=== PATIENT | male | born 1980 | race African-American/Black ===

== ENCOUNTER → 2021-02-08 03:03 | Outpatient (CLI) | payer BC, SELFPAY ==
[2021-02-09 01:26] LABS: SARS-CoV-2 RNA PCR Positive
== END ==
PROVIDERS: PCP Family Medicine; Visit Provider Nurse Practitioner Adult Health
DX: U07.1 COVID-19 (principal)
CPT/HCPCS: C9803; U0003; U0005

== ENCOUNTER 2024-12-07 00:18 | Day surgery (SDC) | payer BC, SELFPAY ==
[2024-11-28 08:25] VITALS: BMI 41.4
--- OUTSIDE RECORDS SUMMARY | 2024-12-07 00:21 | XMS_ITS | Encounter Summary ---
Author Organization [facility] Address [address] [place] [address] Care Team Providers Care [employer] Manager Name Role Phone Malini Kamara MD Primary Care Provider Encounter Details Date Type Department Care Team (Latest Contact Info) Description 06/15/2006 Outpatient Historical [facility] Mitch Wallace MD NO ADDRESS ON FILE Other Kyphoscoliosis and Scoliosis (Primary Dx) Social History Tobacco Use Types Packs/Day Years Used Date Smoking Tobacco: Never Assessed Sex and Gender Information Value Date Recorded Sex Assigned at Not on file Legal Sex Male 5:10 AM [employer]IV[employer]NA[employer] Gender Identity Not on file Sexual Orientation Not on file documented as of this encounter Plan of Treatment Not on file documented as of this encounter Visit Diagnoses Diagnosis Other kyphoscoliosis and scoliosis- Primary documented in this encounter Care Teams [employer] Manager Relationship Specialty [place] [id number] [facility] [address] [place] [id number] PCP - General 06/15/06 documented as of this encounter
--- OUTSIDE RECORDS SUMMARY | 2024-12-07 00:21 | XMS_ITS | Data Portability ---
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 Role Phone DEREJE KERR Referring Provider [phone] Assessment Encounter Date Assessment Date Assessment LastModified by Organization Details LastModified Time 01/06/2023 01/06/2023 Assessment: Rhinitis Early REM onset Moderate RIGO, AHI = 26 Hypertension Plan: The following were reviewed and explained to the patient: primary care/referral note [facility] split night sleep study 12/15/14 sleep onset = 5.5 minutes, REM onset = 69 minutes, AHI =26, REM AHI = 64, ResMed medium AirFit P10 nasal pillows @ 8 cmH2O Educated the patient on problems and solutions associated with positive airway pressure (PAP) use. Difficulty tolerating pressure, mask leaks, intolerance of interface, nasal congestion, claustrophobic response, dry mouth, and unintentional mask removal during sleep were covered. Patient experiences nasal congestion. Patient will use nasal saline spray before starting PAP, use heated PAP humidifier, clean/air dry humidifier reservoir daily, use nasal steroid spray, use ipratropium bromide nasal spray if rhinitis/rhinorr hea is present or obtain an oronasal/oral interface. General information on sleep disordered breathing, evaluation of sleep disordered breathing, treatment with PAP therapy, and living with PAP therapy were covered. PSG is medically necessary to determine the degree of and management of sleep apnea. We discussed with the patient the impact of weight on: Sleep disordered breathing Hypertension Hyperlipidemia IGT CANDY Urge urinary incontinence Lumbar stenosis We discussed with the patient the benefit of PAP therapy on: Sleep disordered breathing Rhinitis Hypertension IGT CANDY Urge urinary incontinence Educated the patient on sleep hygiene measures. Relaxing rituals to rest easy, understanding foods with positive and negative impact on sleep, creating a peaceful sleep environment, timing of exercise, using herbal sleep aids, and practicing sleep-friendly meditation were covered. To determine how much sleep is needed, the patient will assess where he falls on the spectrum, examine what lifestyle factors such as work schedules and stress are affecting the quality and quantity of sleep. In general, adults need 7-9 hours of sleep. Educated the patient regarding foods that promote sleep. These include but are not limited to cherries, bananas, toast, oatmeal, and warm milk. Educated the patient regarding foods and drinks to avoid before bedtime. These include but are not limited to aged cheese, chocolate, spicy foods, tomato-based sauces, soy, ginseng tea and processed meat. Advocated influenza vaccination annually and pneumonia vaccination CHEO. Advocated weight loss through diet and exercise. Patient's ideal body weight according to height and gender is up to 220 lbs. Encouraged patient to adjust caloric intake to maintain/achieve ideal body weight, emphasizing on fruits, vegetables, whole grains, and fat-free or low-fat products. These include lean meats, poultry, fish, beans, eggs, and nuts and foods that are low in saturated fats, trans-fats, cholesterol, salt (sodium), and glycemic index. Stressed the importance of regular exercise up to the patient's capacity limits. In this case, we recommend 20 min daily walking, 2 days a week of resistance training. Patient to monitor BP daily and bring records to PCP for further management. Follow-up: 1 week after split night sleep study Not available 01/06/2023 17:16:47 02/19/2023 02/19/2023 Assessment: Rhinitis Early REM onset Severe OSAHS, AHI = 33 Hypertension Plan: The following were reviewed and explained to the patient: [facility] split night sleep study 12/15/14 sleep onset = 5.5 minutes, REM onset = 69 minutes, AHI = 26, RDI = 29, REM RDI = 64, ResMed medium AirFit P10 nasal pillows @ 8 cmH2O [facility] split night sleep study 02/13/23 sleep onset = 10 minutes, REM onset = 138 minutes, AHI = 33, supine AHI = 41, REM AHI = 53, ResMed medium AirFit P10 nasal pillows @ 6-7 cmH2O Educated the patient on problems and solutions associated with positive airway pressure (PAP) use. Difficulty tolerating pressure, mask leaks, intolerance of interface, nasal congestion, claustrophobic response, dry mouth, and unintentional mask removal during sleep were covered. Patient experiences nasal congestion. Patient will use nasal saline spray before starting PAP, use heated PAP humidifier, clean/air dry humidifier reservoir daily, use nasal steroid spray, use ipratropium bromide nasal spray if rhinitis/rhinorr hea is present or obtain an oronasal/oral interface. ResMed Air Sense 11 auto set unit with heated humidifier, ResMed medium AirFit P10 nasal pillows and supplies at 6-7 cmH2O ordered. Further adjustment will be based on clinical response. General information on sleep disordered breathing, evaluation of sleep disordered breathing, treatment with PAP therapy, and living with PAP therapy were covered. We discussed with the patient the impact of weight on: Sleep disordered breathing Hypertension Hyperlipidemia IGT CANDY Urge urinary incontinence Lumbar stenosis We discussed with the patient the benefit of PAP therapy on: Sleep disordered breathing Rhinitis Hypertension IGT CANDY Urge urinary incontinence Educated the patient on sleep hygiene measures. Relaxing rituals to rest easy, understanding foods with positive and negative impact on sleep, creating a peaceful sleep environment, timing of exercise, using herbal sleep aids, and practicing sleep-friendly meditation were covered. To determine how much sleep is needed, the patient will assess where he falls on the spectrum, examine what lifestyle factors such as work schedules and stress are affecting the quality and quantity of sleep. In general, adults need 7-9 hours of sleep. Educated the patient regarding foods that promote sleep. These include but are not limited to cherries, bananas, toast, oatmeal, and warm milk. Educated the patient regarding foods and drinks to avoid before bedtime. These include but are not limited to aged cheese, chocolate, spicy foods, tomato-based sauces, soy, ginseng tea and processed meat. Advocated influenza vaccination annually and pneumonia vaccination CHEO. Advocated weight loss through diet and exercise. Patient's ideal body weight according to height and gender is up to 220 lbs. Encouraged patient to adjust caloric intake to maintain/achieve ideal body weight, emphasizing on fruits, vegetables, whole grains, and fat-free or low-fat products. These include lean meats, poultry, fish, beans, eggs, and nuts and foods that are low in saturated fats, trans-fats, cholesterol, salt (sodium), and glycemic index. Stressed the importance of regular exercise up to the patient's capacity limits. In this case, we recommend 20 min daily walking, 2 days a week of resistance training. Patient to monitor BP daily and bring records to PCP for further management. Follow-up: 3 months, April 2023 Not available 02/19/2023 17:08:43 Plan of Treatment Reminders Order Date Submit Date Provider Last Modified By Organization Details Last Modified Time Details Appointments None recorded. Lab TSH, serum or plasma 2024 025 [email or web address] [facility], [address], [place], [address], 13:01:24 PSA, serum or plasma 2024 025 [email or web address] [facility], [address], [place], [address], 13:01:24 vitamin D, 25-hydroxy , total, serum 2024 025 [email or web address] [facility], [address], [place], [address], 13:01:24 hemoglobin A1C, fingerstic k [address] [facility], [address] [place] [address], [address], 15:18:57 HbA1c (hemoglobi n A1c), blood 2024 025 [facility], [address], [place], [address], 13:01:25 lipid panel, serum 2024 025 [facility], [address], [place], [address], 13:01:23 CMP, serum or plasma 2024 025 [id number] [facility], [address], [place], [address], 5 13:01:24 CK (creatine kinase), total, serum 2024 025 [id number] [facility], [address], [place], [address], 5 13:01:24 drug screen, urine 2024 025 [facility] ([facility]), [address] [place], [address], 5 08:06:12 vitamin D, 25-hydroxy , total, serum 2023 024 [email or web address], [address], [place], [address], 4 03:23:33 vitamin B12 + folate, serum or blood 2023 024 [email or web address], [address], [place], [address], 4 03:23:33 CMP, serum or plasma 2023 024 [email or web address], [address], [place], [address], 4 03:23:32 lipid panel, serum 2023 024 [email or web address], [address], [place], [address], 4 03:23:31 TSH + free T4, serum 2023 024 [email or web address], [address], [place], [address], 4 03:23:31 CBC w/ auto diff 2023 024 [email or web address], [address], [place], [address], 4 03:23:33 CK (creatine kinase), total, serum 2023 024 DEMOPOLIS [facility], [address] [facility], [place], [address], 4 03:23:32 Referral gastroente rologist referral - 44 y/o needs a colonoscop y . Please call patient to schedule an appointmen t. Thank you 2024 025 [facility], [address], [address], [place], [address], 5 19:55:17 Procedures None recorded. Surgeries None recorded. Imaging polysomnog saray, split night - No auth required per [facility] 2022 023 [facility] [place], [address] [place], [address], 3 10:18:50 Medication Orders tramadol ER 100 mg tablet,ext ended release [address] [id number], [address] [facility], [place], [address], 5 14:53:49 fluticason e propionate 50 mcg/actuat ion nasal spray,susp ension 2023 024 [facility], [facility] [place], [address], 4 13:15:22 cetirizine 10 mg tablet 2023 024 [facility], [facility] [place], [address], 4 13:15:23 solifenaci n 10 mg tablet 2023 024 [facility], [facility] [place], [address], 4 13:13:34 simvastati n 40 mg tablet 2023 024 [email or web address] [facility], [place], [address], 5 14:54:31 Patient TargetsNo targets recorded. 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 Please call patient to schedule an appointment. Thank you Referring Physician: Dereje Kerr, Family Medicine, Encounter Date: 09/27/2024 Results Created Date Observation Date Name Description Value Unit Range Abnormal Flag Note LastModifiedBy Organization Detail LastModifiedTime 12/14/19 24 12/19/2023 LIPID PANEL , STAND ONESIMO cholesterol, total 200 mg/dL <200 high Not Available [facility] [address] [address] [place], [address], 12/19/2023 03:23:30 12/14/19 24 12/19/2023 LIPID PANEL , STAND ONESIMO HDL cholesterol 44 mg/dL > or = 40 normal Not Available [facility] [address] [address] [place], [address], 12/19/2023 03:23:30 12/14/19 24 12/19/2023 LIPID PANEL , STAND ONESIMO triglyceride s 125 mg/dL <150 normal Not Available [facility] [address] [place], [address], 12/19/2023 03:23:30 12/14/19 24 12/19/2023 LIPID PANEL , STAND ONESIMO LDL-choleste rol 132 mg/dL _(deja c) high Refer ence range : <100 Last able range <100 mg/dL for prima ry preve ntion ; <70 mg/dL for patie nts with CHD or diabe tic patie nts with > or = 2 CHD risk facto rs. LDL-C is now calcu lated using the Bailey n-Hop kins calcu kalyanijimmy n, which is a valid ated novel metho d provi ding candy r accur acy than the Fried joon equat ion in the estim ation of LDL-C . Bailey davis SS et al. KIM. 2013; 310(1 9): 2061- 2068 (http ://ed ucati on.Qu estFollowap. com/f aq/FA Q164) Not Available [facility] [address] [address] [place], [address], 12/19/2023 03:23:30 12/14/19 24 12/19/2023 LIPID PANEL , STAND ONESIMO chol/HDLC ratio 4.5 (calc ) <5.0 normal Not Available [facility] [address] [address] [place], [address], 12/19/2023 03:23:30 12/14/19 24 12/19/2023 LIPID PANEL , STAND ONESIMO non HDL cholesterol 156 mg/dL _(deja c) <130 high For patie nts with diabe jac plus 1 major ASCVD risk facto r, treat ing to a non-H DL-C goal of <100 mg/dL (LDL- C of <70 mg/dL ) is orlin powers optio n. Not Available [facility] [address] [address] [place], [address], 12/19/2023 03:23:30 12/14/19 24 12/19/2023 TSH+F REE T4 TSH 1.60 mIU/L 0.40-4 .50 normal Not Available [facility] [address] [address] [place], [address], 12/19/2023 03:23:31 12/14/19 24 12/19/2023 TSH+F REE T4 T4, free 1.2 NG/dL 0.8-1. 8 normal Not Available [address], [address], 12/19/2023 03:23:31 12/14/19 24 12/19/2023 COMPR EHENS NONA METAB OLIC PANEL glucose 88 mg/dL 65-99 normal Fasti ng refer ence inter maricruz Not Available [address], [address], 12/19/2023 03:23:32 12/14/19 24 12/19/2023 COMPR EHENS NONA METAB OLIC PANEL urea nitrogen (BUN) 16 mg/dL 7-25 normal Not Available [address], [address], 12/19/2023 03:23:32 12/14/19 24 12/19/2023 COMPR EHENS NONA METAB OLIC PANEL creatinine 1.25 mg/dL 0.60-1 .29 normal Not Available [address], [address], 12/19/2023 03:23:32 12/14/19 24 12/19/2023 COMPR EHENS NONA METAB OLIC PANEL eGFR 73 mL/mi n/1.7 3m2 > or = 60 normal Not Available [address], [address], 12/19/2023 03:23:32 12/14/19 24 12/19/2023 COMPR EHENS NONA METAB OLIC PANEL BUN/creatini ne ratio SEE NOTE: (calc ) 6-22 Not Repor john: BUN and Creat inine are withi n refer ence range . Not Available [address], [address], 12/19/2023 03:23:32 12/14/19 24 12/19/2023 COMPR EHENS NONA METAB OLIC PANEL sodium 141 mmol/ L 135-14 6 normal Not Available [address], [address], 12/19/2023 03:23:32 12/14/19 24 12/19/2023 COMPR EHENS NONA METAB OLIC PANEL potassium 3.6 mmol/ L 3.5-5. 3 normal Not Available [address], [address], 12/19/2023 03:23:32 12/14/19 24 12/19/2023 COMPR EHENS NONA METAB OLIC PANEL chloride 99 mmol/ L 98-110 normal Not Available [address], [address], 12/19/2023 03:23:32 12/14/19 24 12/19/2023 COMPR EHENS NONA METAB OLIC PANEL carbon dioxide 33 mmol/ L 20-32 high Not Available [address], [address], 12/19/2023 03:23:32 12/14/19 24 12/19/2023 COMPR EHENS NONA METAB OLIC PANEL calcium 10.6 mg/dL 8.6-10 .3 high Not Available [address], [address], 12/19/2023 03:23:32 12/14/19 24 12/19/2023 COMPR EHENS NONA METAB OLIC PANEL protein, total 7.5 g/dL 6.1-8. 1 normal Not Available [address], [address], 12/19/2023 03:23:32 12/14/19 24 12/19/2023 COMPR EHENS NONA METAB OLIC PANEL albumin 4.6 g/dL 3.6-5. 1 normal Not Available [address], [address], 12/19/2023 03:23:32 12/14/19 24 12/19/2023 COMPR EHENS NONA METAB OLIC PANEL globulin 2.9 g/dL_ (calc ) 1.9-3. 7 normal Not Available [address], [address], 12/19/2023 03:23:32 12/14/19 24 12/19/2023 COMPR EHENS NONA METAB OLIC PANEL albumin/glob ulin ratio 1.6 (calc ) 1.0-2. 5 normal Not Available [address], [address], 12/19/2023 03:23:32 12/14/19 24 12/19/2023 COMPR EHENS NONA METAB OLIC PANEL bilirubin, total 0.9 mg/dL 0.2-1. 2 normal Not Available [address], [address], 12/19/2023 03:23:32 12/14/19 24 12/19/2023 COMPR EHENS NONA METAB OLIC PANEL alkaline phosphatase 64 U/L 36-130 normal Not Available [address], [address], 12/19/2023 03:23:32 12/14/19 24 12/19/2023 COMPR EHENS NONA METAB OLIC PANEL AST 22 U/L 10-40 normal Not Available [address], [address], 12/19/2023 03:23:32 12/14/19 24 12/19/2023 COMPR EHENS NONA METAB OLIC PANEL ALT 25 U/L 9-46 normal Not Available [address], [address], 12/19/2023 03:23:32 12/14/19 24 12/19/2023 CREAT INE KINAS E, TOTAL creatine kinase, total 343 U/L 44-196 high Not Available [address], [address], 12/19/2023 03:23:32 12/14/19 24 12/19/2023 CBC (INCL UDES DIFF/ PLT) white blood cell count 7.8 thous and/u L 3.8-10 .8 normal Not Available [address], [address], 12/19/2023 03:23:33 12/14/19 24 12/19/2023 CBC (INCL UDES DIFF/ PLT) red blood cell count 5.00 ranjith on/uL 4.20-5 .80 normal Not Available [address], [address], 12/19/2023 03:23:33 12/14/19 24 12/19/2023 CBC (INCL UDES DIFF/ PLT) hemoglobin 15.2 g/dL 13.2-1 7.1 normal Not Available [address], [address], 12/19/2023 03:23:33 12/14/19 24 12/19/2023 CBC (INCL UDES DIFF/ PLT) hematocrit 47.0 % 38.5-5 0.0 normal Not Available [address], [address], 12/19/2023 03:23:33 12/14/19 24 12/19/2023 CBC (INCL UDES DIFF/ PLT) MCV 94.0 fL 80.0-1 00.0 normal Not Available [address], [address], 12/19/2023 03:23:33 12/14/19 24 12/19/2023 CBC (INCL UDES DIFF/ PLT) MCH 30.4 pg 27.0-3 3.0 normal Not Available [address], [address], 12/19/2023 03:23:33 12/14/19 24 12/19/2023 CBC (INCL UDES DIFF/ PLT) MCHC 32.3 g/dL 32.0-3 6.0 normal Not Available [address], [address], 12/19/2023 03:23:33 12/14/19 24 12/19/2023 CBC (INCL UDES DIFF/ PLT) RDW 12.9 % 11.0-1 5.0 normal Not Available [address], [address], 12/19/2023 03:23:33 12/14/19 24 12/19/2023 CBC (INCL UDES DIFF/ PLT) platelet count 202 thous and/u L 140-40 0 normal Not Available [address], [address], 12/19/2023 03:23:33 12/14/19 24 12/19/2023 CBC (INCL UDES DIFF/ PLT) MPV 12.3 fL 7.5-12 .5 normal Not Available [address], [address], 12/19/2023 03:23:33 12/14/19 24 12/19/2023 CBC (INCL UDES DIFF/ PLT) absolute neutrophils 4922 cells /uL 1500-7 800 normal Not Available [address], [address], 12/19/2023 03:23:33 12/14/19 24 12/19/2023 CBC (INCL UDES DIFF/ PLT) absolute lymphocytes 1973 cells /uL 850-39 00 normal Not Available [address], [address], 12/19/2023 03:23:33 12/14/19 24 12/19/2023 CBC (INCL UDES DIFF/ PLT) absolute monocytes 585 cells /uL 200-95 0 normal Not Available [facility] [address], [address], 12/19/2023 03:23:33 12/14/19 24 12/19/2023 CBC (INCL UDES DIFF/ PLT) absolute eosinophils 218 cells /uL 15-500 normal Not Available [address], [address], 12/19/2023 03:23:33 12/14/19 24 12/19/2023 CBC (INCL UDES DIFF/ PLT) absolute basophils 101 cells /uL 0-200 normal Not Available [facility] [address], [address], 12/19/2023 03:23:33 12/14/19 24 12/19/2023 CBC (INCL UDES DIFF/ PLT) neutrophils 63.1 % normal Not Available [address], [address], 12/19/2023 03:23:33 12/14/19 24 12/19/2023 CBC (INCL UDES DIFF/ PLT) lymphocytes 25.3 % normal Not Available [address], [address], 12/19/2023 03:23:33 12/14/19 24 12/19/2023 CBC (INCL UDES DIFF/ PLT) monocytes 7.5 % normal Not Available [facility] [address], [address], 12/19/2023 03:23:33 12/14/19 24 12/19/2023 CBC (INCL UDES DIFF/ PLT) eosinophils 2.8 % normal Not Available [address], [address], 12/19/2023 03:23:33 12/14/19 24 12/19/2023 CBC (INCL UDES DIFF/ PLT) basophils 1.3 % normal Not Available [facility] [id number] [place], [address], 12/19/2023 03:23:33 12/14/19 24 12/19/2023 VITAM IN B12/F OLATE , SERUM PANEL vitamin B12 427 pg/mL 200-11 00 normal Not Available [facility] [address] [address] [place], [address], 12/19/2023 03:23:33 12/14/19 24 12/19/2023 VITAM IN B12/F OLATE , SERUM PANEL folate, serum 6.7 NG/mL normal Refer ence Range Low: <3.4 Borde rline : 3.4-5 .4 Kristin l: >5.4 Not Available [address] [address] [place], [address], 12/19/2023 03:23:33 12/14/19 24 12/19/2023 VITAM IN D,25- OH,TO WILEY,I A vitamin D,25-oh,tota l,ia 60 NG/mL 30-100 normal Vitam in D Statu s 25-OH Vitam in D: Defic iency : <20 ng/mL Insuf ficie ncy: 20 - 29 ng/mL Optim al: > or = 30 ng/mL For 25-OH Vitam in D testi ng on patie nts on D2-gillespie pplem entat ion and patie nts for whom quant itati on of D2 and D3 fract ions is requi red, the [facility] eD(TM ) 25-OH VIT D, (D2,D 3), LC/MS /MS is recom brittaney d: order code 19371 (vanessa ents >2yrs ). See Note 1 Note 1 For addit ional infor guero chowdhury refer to http: //ava Horne gnmaryam ics.c om/fa q/FAQ 199 (This link is being provi ded for infor leo preston/ onel morales purpo ses only. ) Not Available [address] [address] [place], [address], 12/19/2023 03:23:33 01/07/20 23 12/15/2014 polys omnog saray, split night No observ ation record ed. BARCODE Not Available 2022 13:44:38 02/19/20 23 02/13/2023 polys omnog saary, split night No observ ation record ed. BARCODE [facility] [address] [place], [address], 02/18/2023 10:18:50 Result Notes None recorded. Problems Name Problem SNOMED Code Status Onset Date Resolution Date Notes Provider Name and Address Organization Details Recorded Time Neoplasm of kidney 912797104 Active Not Available [facility] 3 07:12:03 Nocturia 671436454 Active Not Available [facility] 3 07:12:03 Spinal stenosis of lumbar region 09445580 Active Not Available [facility] 3 07:12:03 Gastroesophag eal reflux disease 065374746 Active Not Available [facility] 3 07:12:03 Vitamin D deficiency 78252012 Active Not Available [facility] 3 07:12:03 Hyperlipidemi a 21875321 Active Not Available [facility] 3 07:12:03 Essential hypertension 04222033 Active Not Available [facility] 3 07:12:03 Sleep apnea 65830379 Active Not Available [facility] 3 07:12:03 Impaired glucose tolerance 8269199 Active Not Available [facility] 3 07:12:03 Hypertrophy of nasal turbinates 60901934 Active 2022 Not Available [facility] 3 07:12:03 Obstructive sleep apnea syndrome 49275142 Active 2022 Not Available [facility] 3 07:12:03 Allergic rhinitis 83164523 Active 2023 SUJEY Hammer [address] [facility], [address], [address] , [facility] 4 13:13:50 Acute otitis media 5310430 Active 2023 SUJEY Hammer [address], [place], [address] , [employer] [facility] 4 12:38:51 Screening for malignant neoplasm of prostate Active 2024 SUJEY Hammer [address], [place], [address] , [employer] [facility] [employer] 5 14:56:38 Obese 867449228 Active 2024 SUJEY Hammer [address], [place], [address] , [employer] [facility] [employer] 5 14:57:38 Screening for malignant neoplasm of colon Active 2024 SUJEY Hammer [address], [place], [address] , [employer] [facility] [employer] 5 14:59:05 Adult health examination Active 2024 SUJEY Hammer [address], [place], [address] , [employer] [facility] 5 17:32:28 Notes:Medical History: Rhini tis Bruxism Early REM onset Obesity with severe OSAHS, AHI = 26, 02/13/23 Hypertension Hyperlipidemia IGT CANDY Urge urinary incontinence Vit D deficiency Lumbar stenosis Procedure History: Astrocytoma resection 1985 Submucous resection inferior turbinate 2022 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 Procedures Surgical History Date Name Laterality Status Provider Name and Address Organization Details Recorded Time 12/22/19 21 SEPTOPLASTY (SURG) completed Not Available [facility] 08/27/2022 06:49:33 Brain [facility]/27/[facility]22 06:40:08 Imaging Results None recorded. Procedure Notes None recorded. Medical Equipment None Reported. Allergies No known drug allergies Medications Name Sig Start Date Stop Date Status Note LastModified by Organization Details LastModified Time amoxicillin 500 mg capsule active Not Available Not Available Not Available atorvastati n 20 mg tablet Take 1 tablet every day by oral route. 11/11 completed Not Available Not Available Not Available cetirizine 10 mg tablet TAKE 1 TABLET BY MOUTH EVERY DAY 2023 active Not Available Not Available Not Avai lable nifedipine ER 90 mg tablet,exte nded release 1 po daily 10/11 completed Not Available Not Available Not Available benzonatate 200 mg capsule Take 1 capsule 3 times a day by oral route. 11/11 completed Not Available Not Available Not Available metoprolol succinate ER 50 mg tablet,exte nded release 24 hr TAKE 1 TABLET DAILY active Not Available Not Available No t Available tolterodine ER 4 mg capsule,ext ended release 24 hr TAKE 1 CAPSULE BY MOUTH EVERY DAY 11/11 completed Not Available Not Available Not Available clobetasol 0.05 % topical cream Apply 1 applicati on twice a day by topical route for 30 days. 03/24 completed Not Available Not Available Not Available Zithromax Z-Giuseppe 250 mg tablet TAKE 2 TABLETS (500 MG) BY ORAL ROUTE ONCE DAILY FOR 1 DAY THEN 1 TABLET (250 MG) BY ORAL ROUTE ONCE DAILY FOR 4 DAYS 11/11 completed Not Available Not Available Not Available omeprazole 40 mg capsule,del ayed release TAKE 1 CAPSULE DAILY active Not Available Not Available No t Available tramadol 50 mg tablet Take 1 tablet twice a day by oral route as needed for 30 days. 2024 active Not Available Not Available Not Avai lable butalbital- acetaminoph en-caffeine 50 mg-325 mg-40 mg tablet Take 1 tablet every 4 hours by oral route. active Not Available Not Available No t Available simvastatin 40 mg tablet TAKE 1 TABLET DAILY active Not Available Not Available No t Available losartan 100 mg-hydrochl orothiazide 25 mg tablet TAKE 1 TABLET DAILY active Not Available Not Available No t Available potassium chloride ER 20 mEq tablet,exte nded release(par t/cryst) 08/10 completed Not Available Not Available Not Available nifedipine ER 90 mg tablet,exte nded release 24 hr TAKE 1 TABLET DAILY active Not Available Not Available No t Available desloratadi ne 5 mg tablet Take 1 tablet every day by oral route for 90 days. 2023 active Not Available Not Available Not Avai lable hydrocodone 7.5 mg-acetamin ophen 325 mg tablet TAKE 1 TABLET BY MOUTH EVERY 4 HOURS NEEDED 11/11 completed Not Available Not Available Not Available simvastatin 20 mg tablet 01/02 completed Not Available Not Available Not Available esomeprazol e magnesium 40 mg capsule,del ayed release Take 1 capsule by oral route. 11/11 completed Not Available Not Available Not Available ergocalcife rol (vitamin D2) 1,250 mcg (50,000 unit) capsule TAKE 1 CAPSULE ONCE WEEKLY active Not Available Not Available No t Available methylpredn isolone 4 mg tablets in a dose pack TAKE 6 TABLETS ON DAY 1 DIRECTED ON PACKAGE AND DECREASE BY 1 TAB EACH DAY FOR A TOTAL OF 6 DAYS 11/11 completed Not Available Not Available Not Available albuterol sulfate HFA 90 mcg/actuati on aerosol inhaler Inhale 2 puffs every 4 hours by inhalatio n route as needed. active Not Available Not Available No t Available oxybutynin chloride 5 mg tablet TAKE 1 TABLET BY MOUTH EVERYDAY AT BEDTIME 11/11 completed Not Available Not Available Not Available cefdinir 300 mg capsule active Not Available Not Available Not Available fluticasone propionate 50 mcg/actuati on nasal spray,suspe nsion Elizabeth 1 spray twice a day by intranasa l route for 30 days. active Not Available Not Available No t Available Nifedical XL 60 mg tablet,exte nded release 1 po daily active Not Available Not Available No t Available atenolol 50 mg tablet 1 po daily active Not Available Not Available No t Available metoclopram mery 10 mg tablet TAKE ONE TABLET BY MOUTH EVERY 8 HOURS active Not Available Not Available No t Available amoxicillin 875 mg-potassiu m clavulanate 125 mg tablet TAKE 1 TABLET BY MOUTH EVERY 12 HOURS FOR 10 DAYS 09/27 completed Not Available Not Available Not Available ezetimibe 10 mg tablet TAKE 1 TABLET EVERY MORNINGFO R CHOLESTER OL (CONTINUE SIMVASTAT IN 40MG DAILY ) active Not Available Not Available No t Available solifenacin 10 mg tablet TAKE 1 TABLET DAILY active Not Available Not Available No t Available losartan 100 mg-hydrochl orothiazide 12.5 mg tablet take one tablet daily 08/10 completed Not Available Not Available Not Available Fish Oil 01/02 completed Not Available Not Available Not Available simvastatin 2012 active Not Available Not Available Not Avai lable tramadol ER 100 mg tablet,exte nded release 24 hr TAKE 1 TABLET BY MOUTH EVERY DAY active Not Available Not Available No t Available azelastine 205.5 mcg (0.15 %) nasal spray 08/10 completed Not Available Not Available Not Available Myrbetriq 25 mg tablet,exte nded release TAKE 1 TABLET BY MOUTH EVERY DAY 09/27 completed Not Available Not Available Not Available Fioricet 50 mg-300 mg-40 mg capsule TAKE ONE TABLET BY MOUTH EVERY 4 HOURS NEEDED FOR HEADACHE OR MIGRAINE active Not Available Not Available No t Available ID NOW COVID-19 Test Kit TEST DIRECTED 11/11 completed Not Available Not Available Not Available Vitals Date Recorded Body height Body mass index (BMI) Body weight Oxygen saturation Oxygen saturation in Arterial blood by Pulse oximetry Heart rate Body temperature Systolic blood pressure Diastolic blood pressure Provider Name and Address Organization Details Last Updated DateTime 5 193.04 cm 40.5 kg/m2 738125. 26 g 96 % 96 % 83 /min 98 [degF] 148 mm[Hg] 88 mm[Hg] SOWMYA Araujo [facility] [employer] [facility] 5 14:26:38 Date Recorded Body height Body mass index (BMI) Body weight Body temperature Heart rate Oxygen saturation Oxygen saturation in Arterial blood by Pulse oximetry Respiratory rate Systolic blood pressure Diastolic blood pressure Provider Name and Address Organization Details Last Updated DateTime 4 193.04 cm 41.1 kg/m2 937660. 22 g 97.8 [degF] 60 /min 97 % 97 % 16 /min 110 mm[Hg] 86 mm[Hg] Betsey Quintana RN [facility] [employer] [facility] 4 13:01:19 Date Recorded Body mass index (BMI) Body weight Heart rate Respiratory rate Provider Name and Address Organization Details Last Updated DateTime 01/06/2023 40.3 kg/m2 279695.07 g 61 /min 15 /min Evaristo Desai MD [address] [facility] [address], [place], [address], [facility] [employer] [facility] 01/06/2023 17:09:34 Date Recorded Body height Body temperature Heart rate Oxygen saturation Oxygen saturation in Arterial blood by Pulse oximetry Systolic blood pressure Diastolic blood pressure Provider Name and Address Organization Details Last Updated DateTime 3 193.04 cm 98 [degF] 61 /min 95 % 95 % 124 mm[Hg] 90 mm[Hg] Nerissa Ingram MA [facility] 3 16:48:50 Date Recorded Heart rate Respiratory rate Provider Susan gary and Address Organization Details Last Updated DateTime 02/19/2023 82 /min 14 /min Evaristo Desai MD [address] [facility], [facility] [address], [place], [address], [facility] [employer] [facility] 02/19/2023 17:05:36 Date Recorded Body height Body mass index (BMI) Body weight Body temperature Heart rate Oxygen saturation Oxygen saturation in Arterial blood by Pulse oximetry Systolic blood pressure Diastolic blood pressure Provider Name and Address Organization Details Last Updated DateTime 3 193.04 cm 41 kg/m2 091145. 63 g 98.6 [degF] 82 /min 97 % 97 % 126 mm[Hg] 88 mm[Hg] Nerissa Ingram MA [facility] 3 16:37:17 Date Recorded Body height Provider Name an d Address Organization Details Last Updated DateTime 03/26/2023 193.04 cm Noreen Solis CMA [facility] 03/26/2023 10:23:42 Social History Question Answer Notes LastModified by Organizat ion Details LastModified Time Tobacco Smoking Status Never Smoker Not Available [facility] 08/27/2022 06:39:28 What Is Your Level Of Caffeine Consumption? Heavy [id number] Information not available 08/27/2022 How Much Tobacco Do You Chew? None [id number] Information not available 08/27/2022 In The 14 Days Before Symptom Onset, Have You Had Close Contact With A Laboratory-confirm ed COVID-19 While That Case Was Ill? No [id number] Information not available 08/27/2022 In The 14 Days Before Symptom Onset, Have You Had Close Contact With A Person Who Is Under Investigation For COVID-19 While That Person Was Ill? No [id number] Information not available 08/27/2022 What Type Of Diet Are You Following? REGULAR [id number] Information not available 08/27/2022 Which Illicit Or Recreational Drugs Have You Used? None [id number] Information not available 08/27/2022 Do You Have An Electrostatic Air Filter? Yes Information not available 01/06/2023 Are There Any Guns Present In Your Home? Yes [id number] Information not available 08/27/2022 Do You Have A Humidifier? Yes Information not available 01/06/2023 Do You Have Moisture Problems In Your Home? No Information not available 01/06/2023 What Was The Date Of Your Most Recent Tobacco Screening? 02/19/2023 Information not available 02/19/2023 Do You Have Any Pets? Yes Information not available 01/06/2023 Do You Use Your Seat Belt Or Car Seat Routinely? Yes Information not available 01/06/2023 Do You Have Smoke And Carbon Monoxide Detectors In Your Home? Yes Information not available 01/06/2023 Are You Passively Exposed To Smoke? No [id number] Information not available 08/27/2022 Do You Use Sunscreen Routinely? No Information not available 01/06/2023 Have You Recently Traveled Abroad? No Information not available 01/06/2023 Sex: Unknown Functional Status Question Answer Note LastModified by Organizat ion Details LastModified Time What is your level of alcohol consumption? None [id number] Information not available 08/27/2022 Have you been exposed to chemicals or toxins? 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 None [id number] 26 Information not available 08/27/2022 What type of noise exposure are you exposed to? Industrial [id number] 26 Information not available 08/27/2022 Mental Status Question Answer Note LastModified by Organization D etails LastModified Time Do you feel stressed (tense, restless, nervous, or anxious, or unable to sleep at night)? [id number] Information not available 01/06/2023 Family History Relationship Description Onset Age of this Age Resolved Age Notes LastModified by Organization Details LastModified Time Maternal Grandmother Hypertensive disorder [id number] Not available 08/27/2022 06:40:10 Daughter Hypertensive disorder [email or web address] Not available 2022 12:26:56 Medical History Condition Response MRSA N SLEEP APNEA N ALLERGIES/HAYFEVER N LUNG DISEASE/DISORDER N INSOMNIA N RADIATION / CHEMOTHERAPY N COPD N HIGH CHOLESTEROL / HYPERLIPIDEMIA N HYPERTHYROIDISM N BLOOD DISEASES N EAR OR HEARING PROBLEMS N HYPOTHYROIDISM N DEPRESSION (INCLUDING POST ) N HAVE YOU BEEN HOSPITALIZED OR SEEN IN [facility] IN THE PAST YEAR ? N STROKE/TIA N ULCERS N OBESITY N HISTORY WITH COMPLICATIONS WITH ANESTHES IA ? N ANEURYSM N USE OF BLOOD THINNERS N NO SIGNIFICANT PAST MEDICAL HISTORY N DIABETES, TYPE N PARATHYROID DISEASE N ENT N SEASONAL ALLERGIES N HEARTBURN / REFLUX Y HEPATITIS / LIVER DISEASE N SLEEP DISORDER N SEIZURES/EPILEPSY N HEADACHES/MIGRAINES N CHF N PACEMAKER N DIZZINESS N HEART DISEASE/HEART PROBLEMS N AIDS/HIV N FRACTURES N HYPERTENSION N CANCER: SPECIFY N TOURETTE'S N BLOOD TRANSFUSION N ANESTHESIA COMPLICATIONS N ANEMIA/BLOOD DISORDER N CHRONIC EAR INFECTIONS N TUBERCULOSIS N Immunizations Vaccine Type Date Status Note Provider Nam e and Address Organization Details Recorded Time Influenza, split virus, quadrivalent, PF 3 completed Mily Bhat MD [address], [address], [facility] 03/27/2023 08:30:00 Influenza, split virus, quadrivalent, PF 1 completed Not Available [facility] 04/09/2023 07:12:04 Influenza, split virus, quadrivalent, PF 9 completed Not Available [facility] 04/09/2023 07:12:04 Influenza, split virus, quadrivalent, preservative 6 completed Not Available [facility] 04/09/2023 07:12:04 Past Encounters Encounter ID Performer Location Encounter Start Date Encounter Closed Date Diagnosis/Indication Diagnosis SNOMED-CT Code Diagnosis ICD10 Code Diagnosis Note [id number] Mily Bhat MD [facility] Geoffrey page [address] [facility] [place] [address] 10/11/2020 00:00:00 10/11/2020 21:20:56 [id number] Mitesh Tejada MD [facility] [place] Luis Grullon [address] [address] 11/29/2020 00:00:00 11/29/2020 11:45:36 [id number] Mily Bhat MD [facility] [address] [place] [address] [place] [address] 12/04/2020 00:00:00 12/05/2020 06:33:18 [id number] Mitesh Tejada MD [facility] Nora [address] [address] 01/01/2021 00:00:00 01/01/2021 15:03:56 [id number] Mily Bhat MD [facility] [address] [place] [address] y , [place] [address] 11/11/2022 16:44:09 11/11/2022 17:13:40 Adult health examination 465956897 Z00.00 Hyperlipidemia 70511451 E78.5 Will increase the simvastati n to 40 mg daily Elevated blood-pressure reading without diagnosis of hypertension 778194032 R03.0 Recheck BP 120/88. Watch salt in diet and weight loss. [id number] Mitesh Tejada MD [facility] [place] Luis Grullon [address] [address] 11/13/2022 16:48:52 11/14/2022 11:56:25 Hypertrophy of nasal turbinates 33345330 J34.3 [id number] Evaristo Desai MD [facility] [address] [address] 01/06/2023 16:24:41 01/07/2023 08:38:11 Obstructive sleep apnea syndrome 55231466 G47.33 [id number] MD IRAIDA [facility] [address] [address] 02/19/2023 16:22:35 02/20/2023 07:58:19 Obstructive sleep apnea syndrome 49461342 G47.33 [id number] Mily Bhat MD [facility] [place] [address] [facility] y [place] [address] 03/26/2023 10:02:55 03/26/2023 11:54:12 Administration of influenza vaccine 20748586 Z23 [id number] Hossein Moody MD [facility] [place] [address] [facility] y [place] [address] 12/14/2023 12:45:15 12/14/2023 13:19:24 Hyperlipidemia 41374459 E78.5 Nocturia 287718181 R35.1 Allergic rhinitis 002904 04 J30.9 Screening for malignant neoplasm of prostate 335298330 Z12.5 Vitamin D deficiency 347 83091 E55.9 Essential hypertension 60140102 I10 Gastroesop hageal reflux disease 737010474 K21.9 Sleep apnea 67920746 G47 .30 Spinal sunday nosis of lumbar region 59736167 M48.062 Impaired g lucose tolerance 7959041 R73.09 [id number] Hossein Moody MD [address] [address] 09/27/2024 14:18:53 09/27/2024 15:33:59 Spinal stenosis of lumbar region 42205156 M48.062 Essential hypertension 78349598 I10 Hyperlipidemia 21016149 E78.5 Vitamin D deficiency 347 64724 E55.9 Impaired g lucose tolerance 9206842 R73.09 Screening for malignant neoplasm of prostate 564257287 Z12.5 Obese 177723793 E66.9 Screening for malignant neoplasm of colon 148968434 Z12.11 Long-term current use of opiate analgesic drug 8228966706 93194 Z79.891 Adult heal th examination 380952734 Z00.00 Health Concerns Section Related Observation LastModified by Organization Detai ls LastModified Time None Recorded Concern Status LastModified by Organization Details LastModified Time None Recorded Advance Directives Directive None Recorded Payers Encounter Date Sequence Insurance Name Policy Number Policy Morales Covered Member ID Morales Member ID Guarantor Name 01/06/2023 1 [employer] (PP[employer]) [id number] Andrzej D Quang [id number] Andrzej D Quang 02/19/2023 1 [employer] [id number] Andrzej Scott Quang [id number] Andrzej Tyler Quang 03/26/2023 1 [place] [id number] Andrzej D Quang [id number] Andrzej D Quang 12/14/2023 1 [place] [id number] Andrzej Tyler Quang [id number] Andrzej D Quang 09/27/2024 1 [place] [id number] Andrzej D Quang [id number] Andrzej D Quang Notes Date Note Type Note Provider Name and Address Organization Details Recorded Time 01/06/2023 text/html Primary care/Ref erring provider: Mily Bhat MD During the [facility] split night sleep study on 12/15/14, sleep onset = 5.5 minutes, REM onset = 69 minutes, AHI =26, REM AHI = 64. The patient uses a ResMed AirSense 10 autoset unit with heated humidification. The patient does not need the ramp to start low and go up slowly on the pressure anymore. There is no xerostomia in a.m. There is no hose/mask condensation with water.The patient wears ResMed medium AirFit P10 nasal pillows without chin strap. There is no claustrophobia, no nostril/nose bridge irritation, no facial rash, no facial numbness, no nosebleeding. The patient feels more refreshed upon waking and daytime alertness is improved. Energy levels are sustained for the remainder of the day. The patient was lost to follow up. He never started on CPAP therapy due to high cost. At home, the patient sleeps from 10 pm to 4 am and wakes up with an alarm. Snoring: heavy, since .Snorting: noChoking: noCoughing: noGasping: noGagging: noSighing: noWitnessed apnea: yesTwitching or jerking of leg(s), arm(s), body, head: yesTeeth grinding: yesTeeth clenching: yesSleeptalking: noSleepwalking: noSleep crying: noBedwetting: noTongue/lip/gum/cheek biting: noSleeping with open mouth: yesSleep paralysis: noHypnagogic hallucinations: noHypnopompic hallucinations: noVivid dreams: noDifficulty with sleep onset: noDifficulty with sleep maintenance: yesSleep interruptions: nocturia x 3Patient wakes up with: fatigue, mobility impairmentDaytime cataplexy: noMorning hypersomnolence: yesAfternoon hypersomnolence: yesCaffeine sources in diet: coffee 40 oz per day, tea 1 bottle per week, soda 1/2 bottle per day, chocolate 1 candy bar per month, energy drink 1/2 can of Venom per day Associated medical and psychiatric conditions:Congestive heart failure: noCoronary artery disease: noMyocardial infarction: noHypertension: yesStroke: noBronchial asthma: noChronic obstructive pulmonary disease: noDepression: noBipolar disorder: noAnxiety: noPanic disorder: noPosttraumatic stress disorder: noAttention deficit and hyperactivity disorder: noObsessive Compulsive disorder: noSchizophrenia: noSchizoaffective disorder: noPersonality disorder: noChronic analgesic use: noChronic sedative/hypnotic use: no EPWORTH SLEEPINESS SCALE (ESS) CHANCE OF DOZING SCORE0 = would never doze1 = slight chance of dozing2 = moderate chance of dozing3 = high chance of dozing SITUATION AND CHANCE OF DOZINGSitting and reading - 1Watching television - 3Sitting inactive in a public place (e.g. a theater or meeting) - 0As a passenger in a car for an hour without a break - 0Lying down to rest in the afternoon when circumstances permit - 3Sitting and talking to someone - 0Sitting quietly after lunch without alcohol - 3In a car, while stopped for a few minutes in the traffic - 0TOTAL SCORE 10Subjectively, patient has a moderate chance of dozing. Evaristo Desai MD [address] [place] [address], [facility] [address], [place], [address], [facility] [employer] [facility] 01/06/2023 17:28:02/19/2023 text/html Primary care/Ref erring provider: Mily Bhat MD During the [facility] split night sleep study on 02/13/23, sleep onset = 10 minutes, REM onset = 138 minutes, AHI = 33, supine AHI = 41, REM AHI = 53. The patient uses a ResMed AirSense 11 autoset unit with heated humidification. The patient does not need the ramp to start low and go up slowly on the pressure anymore. There is no xerostomia in a.m. There is no hose/mask condensation with water.The patient wears ResMed medium AirFit P10 nasal pillows without chin strap. There is no claustrophobia, no nostril/nose bridge irritation, no facial rash, no facial numbness, no nosebleeding. The patient feels more refreshed upon waking and daytime alertness is improved. Energy levels are sustained for the remainder of the day. The patient was lost to follow up. He never started on CPAP therapy due to high cost. At home, the patient sleeps from 10 pm to 4 am and wakes up with an alarm. Snoring: heavy, since .Snorting: noChoking: noCoughing: noGasping: noGagging: noSighing: noWitnessed apnea: yesTwitching or jerking of leg(s), arm(s), body, head: yesTeeth grinding: yesTeeth clenching: yesSleeptalking: noSleepwalking: noSleep crying: noBedwetting: noTongue/lip/gum/cheek biting: noSleeping with open mouth: yesSleep paralysis: noHypnagogic hallucinations: noHypnopompic hallucinations: noVivid dreams: noDifficulty with sleep onset: noDifficulty with sleep maintenance: yesSleep interruptions: nocturia x 3Patient wakes up with: fatigue, mobility impairmentDaytime cataplexy: noMorning hypersomnolence: yesAfternoon hypersomnolence: yesCaffeine sources in diet: coffee 40 oz per day, tea 1 bottle per week, soda 1/2 bottle per day, chocolate 1 candy bar per month, energy drink 1/2 can of Venom per day Associated medical and psychiatric conditions:Congestive heart failure: noCoronary artery disease: noMyocardial infarction: noHypertension: yesStroke: noBronchial asthma: noChronic obstructive pulmonary disease: noDepression: noBipolar disorder: noAnxiety: noPanic disorder: noPosttraumatic stress disorder: noAttention deficit and hyperactivity disorder: noObsessive Compulsive disorder: noSchizophrenia: noSchizoaffective disorder: noPersonality disorder: noChronic analgesic use: noChronic sedative/hypnotic use: no EPWORTH SLEEPINESS SCALE (ESS) CHANCE OF DOZING SCORE0 = would never doze1 = slight chance of dozing2 = moderate chance of dozing3 = high chance of dozing SITUATION AND CHANCE OF DOZINGSitting and reading - 1Watching television - 1Sitting inactive in a public place (e.g. a theater or meeting) - 0As a passenger in a car for an hour without a break - 0Lying down to rest in the afternoon when circumstances permit - 3Sitting and talking to someone - 0Sitting quietly after lunch without alcohol - 2In a car, while stopped for a few minutes in the traffic - 0TOTAL SCORE 7Subjectively, patient has a slight chance of dozing. 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 SUJEY Hammer [address], [place], [address], [employer] 10/02/2024 17:34:14
--- OUTSIDE RECORDS SUMMARY | 2024-12-07 00:21 | XMS_ITS | Clinical Summary ---
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 Gender Identity Not on file Sexual Orientation Not on file Plan of Treatment Health Maintenance Due Date Last Done Comments DTAP/TDAP/TD VACCINES (1 - Tdap) 09/27/1998 HEPATITIS B VACCINES (1 of 3 - 19+ 3-dose series) 09/27/1998 INFLUENZA VACCINE (#1) 2024 COLORECTAL SCREENING 09/27/2024 Colorectal Cancer Screening 09/27/2024 FIT-DNA Q 3 years 09/27/2024 FIT/FOBT Q 1 year 09/27/2024 Flex Sig/CT Colonography Q 5 years 09/27/2024 HPV VACCINES Aged Out No longer eligi ble based on patient's age to complete this topic Care Teams Compound Machine Operator Relationship Specialty [place] [address] [facility] [address] [place] [id number] PCP - General 06/15/06
--- OUTSIDE RECORDS SUMMARY | 2024-12-07 00:22 | XMS_ITS | Clinical Summary ---
Author Organization [facility] [employer] Address [address] [place] [address] Care Team Providers Care Wildlife Ecologist Name Role Phone Mily Bhat MD Primary Care Provider [phone] Source Comments [facility] [employer],non-owned Affiliates and Associated Physician Practices is amultiple site organization consisting of ambulatory clinics and hospital sitesin [place], [place], [place] and [place]. This disclosure is being madepursuant to the Care Everywhere program and may not contain all information available regarding this patient. Last updated 18.[employer] Allergies No known active allergies Medications * Be aware that medications may not be up to date on this document. Alwaysverify current medications with the patient. atenolol (TENORMIN) 50 MG tablet Take 50 mg by mouth once daily. Active fish oil/omega-3 fatty acids (PROMEGA;CARDI- OMEGA 3) 1000 MG capsule Take 1,000 mg by mouth daily with food. Active Flaxseed, Linseed, 1000 MG CAPS Take 1,000 mg by mouth once daily. Active butalbital-acet aminophen-caffe ine (FIORICET) 50-325-40 MG tablet Take 1 Tab by mouth every 4 hours as needed for Headache or Migraine. 20 Tab 0 04/18/2013 Active metoclopramide (REGLAN) 10 MG tablet Take 1 Tab by mouth every 8 hours. 20 Tab 0 04/18/2013 Active potassium chloride ER (KLOR-CON M) 20 MEQ tablet Take 1 tablet by mouth 3 times daily 12 tablet 08/04/2018 Active Social History Tobacco Use Types Packs/Day Years Used Date Smoking Tobacco: Never Alcohol Use Standard Drinks/Week Comments No 0 (1 standard drink = 0.6 oz pur e alcohol) Sex and Gender Information Value Date Recorded Sex Assigned at Not on file Legal Sex Male 12:48 PM CDT Gender Identity Not on file Sexual Orientation Not on file Last Filed Vital Signs Vital Sign Reading Time Taken Comments Blood Pressure 124/76 08/04/2018 2:31 PM TRANSPORTATION SUPERVISOR Pulse 78 08/04/2018 6:32 PM TRANSPORTATION SUPERVISOR Temperature 37 C (98.6 F) 08/04/2018 2:04 PM TRANSPORTATION SUPERVISOR Respiratory Rate 19 08/04/2018 6:32 PM TRANSPORTATION SUPERVISOR Oxygen Saturation 94% 08/04/2018 6:32 PM TRANSPORTATION SUPERVISOR Inhaled Oxygen Concentration - - Weight 149.7 kg (330 lb) 08/04/2018 2:01 PM TRANSPORTATION SUPERVISOR Height 193 cm (6' 4) 08/04/2018 2:01 PM TRANSPORTATION SUPERVISOR Body Mass Index 40.17 08/04/2018 2:01 PM TRANSPORTATION SUPERVISOR Plan of Treatment Health Maintenance Due Date Last Done Comments COLOGUARD (AGES 45-75) - COL ON CA SCREENING 1979 COLON MONITORING 1979 COLONOSCOPY - COLON CA SCREENING 1979 CT COLONOGRAPHY - COLON CA SCREENING 1979 Colorectal Cancer Screening 1979 FIT - COLON CA SCREENING 1979 FLEX SIG - COLON CA SCREENING 1979 LIPID TESTING 1979 HIV SCREENING 09/27/1994 HEPATITIS C SCREENING 09/23/1997 DTAP/TDAP/TD VACCINES (1 - Tdap) 09/27/1998 HEPATITIS B VACCINE (1 of 3 - 19+ 3-dose series) 09/27/1998 COVID-19 VACCINE ( - 2023-2 5 season) 2024 DEPRESSION SCREENING 06/29/2024 INFLUENZA VACCINE (Season Ended) 2025 ZOSTER VACCINE (1 of 2) 09/27/2029 HIB VACCINE Aged Out No longer eligi ble based on patient's age to complete this topic HPV VACCINE Aged Out No longer eligi ble based on patient's age to complete this topic MENINGOCOCCAL (Group B) VACC INE SHARED DECISION-MAKING Aged Out No longer eligibl e based on patient's age to complete this topic MENINGOCOCCAL GROUPS A/C/Y/W VACCINE Aged Out No longer eligible b ased on patient's age to complete this topic PNEUMOCOCCAL VACCINE Aged Out No long er eligible based on patient's age to complete this topic Insurance ANTHEM Care Teams Wildlife Ecologist Relationship Specialty Start Date End Date Mily Bhat MD [address] [place] [id number] PCP - General Family Medicine 04/18/13
[2024-12-07 11:40] VITALS: BP 153/91; PULSE 82; RESP 18; TEMP 37.3; O2SAT 98; BMI 38.9
[2024-12-07] MEDS: LACTATED RINGERS 1,000 ML 150 ML IV CONT (12:04)
--- NOTE | 2024-12-07 12:30 | WPDANESEPPF ---
Anes - Initial Pre Proc Eval Procedure: Operation Date: 12/07/24 13:30 Proposed Procedures p Screening Colonoscopy - Porfirio Meyer MD Date/Time: 12/07/24 12:30 Surgeon: Porfirio Meyer MD Pre Op Diagnosis: Screening Patient Data Age: 44 Gender: M Height: 1.93 m Weight: 145.3 kg Last Vital Signs Temp 37.3 C 12/07/24 11:40 Pulse 82 12/07/24 11:40 Resp 18 12/07/24 11:40 BP 153/91 H 12/07/24 11:40 Pulse Ox 98 12/07/24 11:40 O2 Del Method Room Air 12/07/24 11:40 Allergies Allergy/AdvReac Type Severity Reaction Status Date / Time No Known Allergies Allergy Verified 12/07/24 11:50 Home Medications ?Medication ?Instructions ?Recorded ?Confirmed ?Type ergocalciferol (vitamin D2) 1,250 1,250 mcg PO WEEKLY 11/28/24 12/07/24 History mcg (50,000 unit) capsule ezetimibe 10 mg tablet 10 mg PO DAILY 11/28/24 12/07/24 History fluticasone propionate 50 2 spray intranasal DAILY 11/28/24 12/07/24 History mcg/actuation nasal spray,suspension metoprolol succinate 50 mg 50 mg PO DAILY 11/28/24 12/07/24 History tablet,extended release 24 hr nifedipine 90 mg tablet,extended 90 mg PO DAILY 11/28/24 12/07/24 History release 24 hr omega 3-ctm-dsd-fish oil 1,200 mg cap PO DAILY 11/28/24 History (144 mg-216 mg) capsule (Fish Oil) omeprazole 40 mg capsule,delayed 40 mg PO DAILY 11/28/24 12/07/24 History release red beet 500 mg capsule mg PO DAILY 11/28/24 History solifenacin 10 mg tablet 10 mg PO HS 11/28/24 12/07/24 History tramadol 100 mg tablet,extended 100 mg PO DAILY PRN pain 11/28/24 11/28/24 History release 24 hr Patient hx anesthesia problems: none Family hx anesthesia problems: none Results Review: All pre-operative results and documents have been reviewed as part of the pre-operative evaluation. [facility] Social History Social History Smoking status: Never smoker Alcohol intake: never Substance use: never Substance use type: does not use Living arrangements: with family Spiritual care concerns: No Anes - Eval Final PreProcedure Day of Procedure 12/07/24 12:30 Patient weight: obese Heart: regular rate and rhythm Lungs: clear to auscultation Airway: Mallampati scale class III Neurological: alert and oriented Last oral intake: >/= 8 hours ASA classification: III Emergent: no Anesthetic plan: proceed Anesthesia type and monitoring: general GIVS and standard monitoring Results Review: All pre-operative results and documents have been reviewed as part of the pre-operative evaluation. Informed Consent: The patient's anesthetic plan and its attendant risks and benefits were discussed with the patient/family/POA. Questions were solicited and answers provided to the satisfaction of the patient/family/POA.
--- NOTE | 2024-12-07 12:37 | PM.HPGS ---
History of Present Illness History of Present Illness Consent: Risks, benefits, and alternatives have been discussed and questions answered. Patient agrees to proceed with procedure. Chief complaint: Screening Narrative: Andrzej Del Rio is a 44 year old male here for first screening colonoscopy Review of Systems Review of Systems: All systems reviewed & are unremarkable except as noted in HPI and below PMFSH Past Medical History Medical History (Updated 12/07/24 @ 12:38 by Porfirio Meyer MD) Colon cancer screening Social History Social History Smoking status: Never smoker Alcohol intake: never Substance use: never Substance use type: does not use Living arrangements: with family Spiritual care concerns: No Meds Home Medications and Allergies Home Medications ?Medication ?Instructions ?Recorded ?Confirmed ?Type ergocalciferol (vitamin D2) 1,250 1,250 mcg PO WEEKLY 11/28/24 12/07/24 History mcg (50,000 unit) capsule ezetimibe 10 mg tablet 10 mg PO DAILY 11/28/24 12/07/24 History fluticasone propionate 50 2 spray intranasal DAILY 11/28/24 12/07/24 History mcg/actuation nasal spray,suspension metoprolol succinate 50 mg 50 mg PO DAILY 11/28/24 12/07/24 History tablet,extended release 24 hr nifedipine 90 mg tablet,extended 90 mg PO DAILY 11/28/24 12/07/24 History release 24 hr omega 5-nvj-nzh-fish oil 1,200 mg cap PO DAILY 11/28/24 History (144 mg-216 mg) capsule (Fish Oil) omeprazole 40 mg capsule,delayed 40 mg PO DAILY 11/28/24 12/07/24 History release red beet 500 mg capsule mg PO DAILY 11/28/24 History solifenacin 10 mg tablet 10 mg PO HS 11/28/24 12/07/24 History tramadol 100 mg tablet,extended 100 mg PO DAILY PRN pain 11/28/24 11/28/24 History release 24 hr Allergies Allergy/AdvReac Type Severity Reaction Status Date / Time No Known Allergies Allergy Verified 12/07/24 11:50 Vital Signs Vital Signs - 24 hr 12/07/24 11:40 Temperature 99.1 F Pulse Rate 82 Respiratory Rate 18 Blood Pressure 153/91 H Pulse Oximetry 98 Oxygen Delivery Room Air Exam Const: General: comfortable and no acute distress HENMT: Face/Nose/Sinus: Normal nares present Eyes: General: appearance normal, both eyes and all related structures Neck: Neck: no JVD Resp: Auscultation: clear to auscultation bilaterally Cardio: Rate: regular rate Rhythm: regular rhythm GI: Inspection: non-distended GI Palp: Yes Soft to palpation Skin: General skin exam: normal color Neuro: General: gait normal Speech: normal speech Extrem: General: normal to inspection Psych: Mental Status: mental status grossly normal Assessment and Plan Assessment and plan (1) Colon cancer screening: Code(s): Z12.11 - Encounter for screening for malignant neoplasm of colon Status: Acute Assessment and Plan: colonoscopy
--- NOTE | 2024-12-07 12:57 | S_PTH ---
PATIENT: Andrzej Del Rio LOC: [facility] Person#:[id number] AGE/SX: 44/M ROOM: RE12/07/[address]: Porfirio Meyer MD : 1980 BED: DIS: 12/07/2024 SPEC #: [id number] RECD: 12/08/24 07:43 STATUS: [facility] REFred #: [id number] [place]: 12/07/24 12:[address]: Porfirio Meyer DEPT: [facility] Surgical RECD BY: Yuni Elmore ENTERED: 12/08/24 07:44 SP TYPE: Surgical OTHR DR: Dereje Kerr, PA Tissues: A - Colon Polypectomy B - Colon Polypectomy Procedures: Hematoxylin and Eosin Stain Gross and Microscopic Level 4
[2024-12-07 12:59] VITALS: BP 133/78; PULSE 80; RESP 20; O2SAT 98
[2024-12-07 13:09] VITALS: BP 138/79; PULSE 84; RESP 20; O2SAT 98
[2024-12-07 13:19] VITALS: BP 131/80; PULSE 72; RESP 14; O2SAT 97
== END 2024-12-07 13:28 | disposition home or self-care (01) ==
PROVIDERS: PCP Physician Assistant; Referring Provider Physician Assistant; Visit Provider Internal Medicine Gastroenterology
PROC: 0DJD8ZZ Inspection of Lower Intestinal Tract, Via Natural or Artificial Opening Endoscopic (ICD-10-PCS; CPT 45378; principal; 2024-12-07 13:30)
DX: Z12.11 Encounter for screening for malignant neoplasm of colon (principal); D12.5 Benign neoplasm of sigmoid colon; K63.5 Polyp of colon; E66.9 Obesity, unspecified; Z68.39 Body mass index [BMI] 39.0-39.9, adult
CPT/HCPCS: 45380; 45385; 88305; J2003; J2704; J7120